=== PATIENT | female | born 1970 | race Caucasian/White ===

== ENCOUNTER 2023-09-03 19:02 | Emergency (ER) | payer OTHER, BC ==
[2023-09-03 19:20] VITALS: BP 136/86; PULSE 71; RESP 16; TEMP 98; BMI 22.8
[2023-09-03] MEDS ORDERED: KETOROLAC TROMETHAMINE 30 MG/1 ML VIAL ONE (19:22)
[2023-09-03] MEDS ORDERED: METHOCARBAMOL 500 MG TABLET ONE (19:22)
[2023-09-03] MEDS ORDERED: DEXAMETHASONE SOD PHOSPHATE 10 MG/1 ML VIAL ONE (19:22)
[2023-09-03] MEDS: KETOROLAC TROMETHAMINE 60 MG/2 ML VIAL IM ONE (19:25)
[2023-09-03] MEDS: DEXAMETHASONE SOD PHOSPHATE 10 MG/1 ML VIAL IM ONE (19:30)
[2023-09-03] MEDS: METHOCARBAMOL 500 MG TABLET PO ONE (19:34)
== END 2023-09-03 20:04 | disposition home or self-care (01) ==
LOC: FER 19:02
PROC: 3E0233Z Introduction of Anti-inflammatory into Muscle, Percutaneous Approach (ICD-10-PCS; principal; 2023-09-03)
PROC: 3E023GC Introduction of Other Therapeutic Substance into Muscle, Percutaneous Approach (ICD-10-PCS; 2023-09-03)
DX: M62.838 Other muscle spasm (principal); M25.512 Pain in left shoulder; R07.89 Other chest pain; M79.602 Pain in left arm
CPT/HCPCS: 99284-25; J1100